=== PATIENT | female | born 1970 | race Caucasian/White ===

== ENCOUNTER → 2022-06-23 | Outpatient (CLI) | payer OTHER ==
--- NOTE | 2022-06-24 15:32 | MM ---
Reason for Exam: Screening (asymptomatic). Last mammogram was performed 6 year(s) and 5 month(s) ago. Patient History: Menarche at age 10. First Full-Term at age 19. Postmenopausal. Patient used Hormonal Contraceptives for 1 year. 2005, Bilateral Implants. Risk Values: Liliana 5 year model risk: 1.0%. NCI Lifetime model risk: 7.7%. Prior Study Comparison: 06/26/2009 Bilateral Diagnostic Mammogram, [facility]. 07/14/2013 Bilateral Diagnostic Mammogram, [facility]. 02/06/2016 Bilateral Screening Mammogram, [facility]. Tissue Density: The breast tissue is heterogeneously dense. This may lower the sensitivity of mammography. Findings: Analyzed By CAD. Bilateral breast implants are present. There is no suspicious group of microcalcifications or new suspicious mass in either breast. Overall Assessment: Benign, BI-RAD 2 Management: Screening Mammogram of both breasts in 1 year. A clinical breast exam by your physician is recommended on an annual basis and results should be correlated with mammographic findings. Electronically signed and approved by: Vinay Champagne DO
== END | disposition home or self-care (01) ==
LOC: RADMAMWWP 09:43
PROVIDERS: ATTEND Obstetrics & Gynecology
DX: Z12.31 Encounter for screening mammogram for malignant neoplasm of breast (principal); Z78.0 Asymptomatic menopausal state
CPT/HCPCS: 77063; 77067

== ENCOUNTER → 2024-08-09 | Outpatient (CLI) | payer OTHER ==
--- NOTE | 2024-08-09 13:53 | MM ---
Reason for Exam: Clinical finding. Last mammogram was performed 2 year(s) and 1 month(s) ago. Patient History: Menarche at age 10. First Full-Term at age 19. Postmenopausal. Patient used Hormonal Contraceptives for 1 year. 2006, Bilateral Implants. Risk Values: Liliana 5 year model risk: 1.1%. NCI Lifetime model risk: 7.4%. Tissue Density: There are scattered areas of fibroglandular density. Findings: Retropectoral implants, silicone on the left. Uncertain on the right. There is a palpable marker in left upper outer quadrant. Underlying density appears to disperse on spot 3-D CC suggesting an island of fibroglandular tissue. No persistent mass, suspicious microcalcification, or other discrete abnormality is seen. Overall Assessment: Incomplete: need additional imaging evaluation, BI-RAD 0 Management: Diagnostic Breast Ultrasound of the left breast. [facility], , 08/09/2024 1:50 PM. Electronically signed and approved by: Kathy Harris M.D. Radiologist
--- NOTE | 2024-08-09 14:35 | USB ---
Patient History: Menarche at age 10. First Full-Term at age 19. Postmenopausal. Patient used Hormonal Contraceptives for 1 year. 2006, Bilateral Implants. Risk Values: Liliana 5 year model risk: 1.1%. NCI Lifetime model risk: 7.4%. Prior Study Comparison: 07/14/2013 Bilateral Diagnostic Mammogram, [facility]. 02/06/2016 Bilateral Screening Mammogram, [facility]. 06/23/2022 Bilateral MG 3D screening mammo w/cad, [facility]. Findings: Targeted ultrasound of the patient's left breast 1:00 palpable site. Additional scanning subareolar region axilla. A patch of dense tissue is present at 1:00. No solid or cystic lesion or axillary lymphadenopathy. Overall Assessment: Benign, BI-RAD 2 Management: Screening Mammogram of both breasts in 1 year. The patient should continue monthly self breast exams. If any enlarging palpable area is detected, the patient can be rescanned. This exam should not preclude additional follow-up of suspicious palpable abnormalities. Results were given to the patient verbally at the time of exam. [facility], , 08/09/2024 2:31 PM. Electronically signed and approved by: Kathy Harris M.D. Radiologist
== END | disposition home or self-care (01) ==
LOC: RADMAMWWP 12:42
PROVIDERS: ATTEND Obstetrics & Gynecology
CPT/HCPCS: 77062; 77066